=== PATIENT | male | born 1950 | race Caucasian/White ===

== ENCOUNTER → 2020-09-29 | Outpatient (CLI) | payer OTHER ==
[~2020-09-29] MED LIST: MEDROL DOSEPAK 24 MG PO
== END ==
LOC: RAD 12:18
DX: R09.02 Hypoxemia (principal); R91.8 Other nonspecific abnormal finding of lung field
CPT/HCPCS: 36600; 71046; 82803

== ENCOUNTER 2020-10-20 12:10 | Emergency (ER) | payer OTHER ==
[2020-10-20] MEDS ORDERED: MEDROL DOSEPAK 24 MG PO (17:43)
== END 2020-10-20 18:05 | disposition home or self-care (01) ==
LOC: ER1 12:10
DX: M25.552 Pain in left hip (principal); M54.32 Sciatica, left side; J44.9 Chronic obstructive pulmonary disease, unspecified; I48.91 Unspecified atrial fibrillation; E03.9 Hypothyroidism, unspecified; Z79.01 Long term (current) use of anticoagulants; Z88.0 Allergy status to penicillin
CPT/HCPCS: 72131; 73502; 99284; J1100; J1885